=== PATIENT | male | born 1985 | race Caucasian/White ===

== ENCOUNTER 2017-01-02 06:19 | Emergency (ER) | payer OTHER ==
[~2017-01-02] VITALS: Ht 172.7 cm; Wt 87.9 kg
[2017-01-02 06:22] VITALS: TEMP 36.7; Ht 172.7 cm; Wt 87.9 kg
--- NOTE | 2017-01-02 07:23 | EMERGENCY ROOM VISIT NOTE ---
History Report prepared by Cally: Clive Rajan Under the Supervision of: Dr. Janak Castillo M.D. First contact with patient: 06:45 Chief Complaint: LACERATION/CUT (SUT/DERMABOND) Stated Complaint: CUT ON LEFT WRIST - WORK RELATED Nursing Triage Summary: cut his left hand on a piece of tin at work this am. History of Present Illness The patient is a 31 year old male who presents to the Emergency Room after cutting his left hand at work prior to arrival. The patient works in construction and cut his hand on tin that he had been trying to move. His last tetanus shot was 2 years ago. The patient has no other medical complaints at this time. Source of History: patient Onset: prior to arrival Position: hand (left) Review of Systems All systems have been listed, reviewed, and are negative other than those previously mentioned. Please see Additional Medical History Sheet. Past Medical & Surgical Medical Problems: (1) No Known Active Medical Problems Family History FH: cancer FH: hypertension Social History Smoking Status: Never Smoker Alcohol Use: occasionally Occupation Status: employed Current/Historical Medications No Active Prescriptions or Reported Meds Allergies Coded Allergies: No Known Allergies (Unverified , 01/02/17) Physical Exam Vital Signs Date Time Temp Pulse Resp B/P Pulse Ox O2 Delivery O2 Flow Rate FiO2 01/02/17 07:50 78 18 142/88 98 01/02/17 06:22 36.7 79 18 143/86 98 Room Air Physical Exam GENERAL: Patient awake, alert, oriented x 3. Patient does not appear toxic. Patient is adequately hydrated and well-nourished. SKIN: No erythema, pallor, cyanosis or rash HEENT: Normal head, pupils equal, reactive to light and accommodation. Ears normal. Oral cavity and posterior pharynx appear normal. Neck: Without adenopathy, no neck vein distention. EXTREMITIES: 1.5 cm round flap laceration over the volar aspect of left wrist which is approximately 2-3 mm thick. Does not violate any tendons or neurovascular structures. No pedal or pretibial edema. No calf or thigh tenderness. NEUROLOGIC: Cranial nerves II-XII within normal limits. No gross motor sensory function deficits. Medical Decision & Procedures ED Course 0645: Past medical records reviewed. The patient was evaluated in room A9. A complete history and physical examination was performed. 0725: At this time, the patient was placed in a wrist lacer to reduce movement of the wrist. 0731: Upon reevaluation, the patient had been placed in a splint. The patient verbalized agreement of the treatment plan. He was discharged home. Medical Decision Differential diagnoses include laceration with potential violation of neurovascular structures. The patient has a 1.5 cm flap laceration over the right wrist which was secured with benzoin Steri-Strips after thorough cleansing. Patient's tetanus status is up-to-date. The patient was placed in a splint to prevent dehiscence of the wound. The patient is to leave the bandage on for at least 3-4 days. Impression Primary Impression: Laceration of left wrist Scribe Attestation The scribe's documentation has been prepared under my direction and personally reviewed by me in its entirety. I confirm that the note above accurately reflects all work, treatment, procedures, and medical decision making performed by me. Departure Information Dispostion Home / Self-Care Prescriptions No Active Prescriptions or Reported Meds Referrals No Doctor, Assigned (PCP) Forms HOME CARE DOCUMENTATION FORM, IMPORTANT VISIT INFORMATION Patient Instructions My [facility] Additional Instructions Leave the bandage and splint on for at least 3-4 days. Then you may gently clean the wound with soap and water. Where the splint for a full week.
[2017-01-02 07:50] VITALS: BP 142/88; PULSE 78; O2SAT 98
== END 2017-01-02 07:52 | disposition home or self-care (01) ==
LOC: C.EDB 06:20 → C.EDA 07:52
DX: S61.512A Laceration without foreign body of left wrist, initial encounter (principal); W45.8XXA Other foreign body or object entering through skin, initial encounter; Y92.89 Other specified places as the place of occurrence of the external cause; Y99.0 Civilian activity done for income or pay; Z80.9 Family history of malignant neoplasm, unspecified; Z82.49 Family history of ischemic heart disease and other diseases of the circulatory system